=== PATIENT | female | born 1945 | race Hispanic/Latino ===

== ENCOUNTER 2017-10-11 22:32 | Emergency (ER) | payer MEDICARE ==
[2017-10-11 22:32] VITALS: BMI 26.5
[2017-10-11 22:38] VITALS: BP 133/66; PULSE 78; RESP 18; TEMP 98.1; O2SAT 99
--- NOTE | 2017-10-11 23:26 | ED PDOC ---
Upper Extremity Pain/Injury Time Seen by Provider: 10/11/17 22:40 Chief Complaint (Nursing): Finger,Hand,&Wrist Chief Complaint (Provider): Left hand pain, swelling Past Medical History Vital Signs: Last Vital Signs Temp 98.1 F 10/11/17 22:35 Pulse 78 10/11/17 22:35 Resp 18 10/11/17 22:35 BP 133/66 10/11/17 22:35 Pulse Ox 99 10/11/17 22:35 - Medical History PMH: Hypercholesterolemia - Surgical History Other surgeries: Ovary - Family History Family History: States: No Known Family Hx - Home Medications Home Medications: Ambulatory Orders Medication Instructions Recorded Alendronate [Fosamax] 70 mg PO QWK 05/30/15 Aspirin [Aspirin EC] 81 mg PO DAILY 05/30/15 Atorvastatin Calcium [Lipitor] 40 mg PO DAILY 05/30/15 Calcium Carbonate/Vitamin D 1 tab PO DAILY 05/30/15 [Caltrate 600+D 600 mg-200 Iu] Coenzyme Q10 [Coenzyme Q-10] 100 mg PO DAILY 05/30/15 Multivitamin/Iron/Folic Acid 1 tab PO DAILY 05/30/15 [Centrum Complete Multivit Tab] - Allergies Allergies/Adverse Reactions: Allergies Allergy/AdvReac Type Severity Reaction Status Date / Time No Known Allergies Allergy Verified 05/30/15 15:13 - ECG O2 Sat by Pulse Oximetry: 99 Medical Decision Making Medical Decision Making: Possible small avulsion of the posterior proximal phalange seen on lateral view. Disposition - Clinical Impression Clinical Impression: Hand injury - Patient ED Disposition Is Patient to be Admitted: No Counseled Patient/Family Regarding: Diagnosis, Need For Followup - Disposition Referrals: Tess Perez MD [Staff Provider] - Disposition: Routine/Home Disposition Time: 23:23 Condition: GOOD Additional Instructions: Ice, elevation. Follow-up with hand specialist is pain persists. Instructions: Fall Prevention (ED)
--- NOTE | 2017-10-12 13:44 | RAD ---
PROCEDURE: Left Hand Radiographs. HISTORY: fall, pain and swelling base of 2,3 digits COMPARISON: None. FINDINGS: BONES: The current study reveals a small avulsion fracture arising from the ulnar aspect base proximal phalanx 2nd digit. No other fractures are identified. There is a small elliptical shaped corticated bony density within the ulnar soft tissues adjacent to the distal aspect proximal phalanx 4th finger. Additional tiny bony densities ulnar soft tissues adjacent into the DIP joints of the 3rd and 4th fingers and radial margin of the 1st MCP joint. At note also made of small nonspecific well-circumscribed cystic focus within the radial aspect base proximal phalanx 2nd finger on felt to represent a benign cyst. JOINTS: Multi articular DJD. SOFT TISSUES: Normal. OTHER FINDINGS: None. IMPRESSION: There is a small avulsion fracture arising from the radial aspect base proximal phalanx 2nd digit. No other acute displaced fractures are identified. . Tiny bony densities seen within the soft tissues adjacent to the distal aspect proximal phalanx 4th finger as well as the DIP joints of the 3rd and 4th fingers and 1st MCP joint. . Note this report was placed in [facility] review folder for followup.
== END 2017-10-11 23:52 | disposition home or self-care (01) ==
LOC: H.ER 22:32
DX: S69.92XA Unspecified injury of left wrist, hand and finger(s), initial encounter (principal); W01.0XXA Fall on same level from slipping, tripping and stumbling without subsequent striking against object, initial encounter; E78.00 Pure hypercholesterolemia, unspecified; Z79.82 Long term (current) use of aspirin